=== PATIENT | male | born 1945 | race Caucasian/White ===

== ENCOUNTER 2016-10-25 09:13 | Observation (INO) | payer OTHER ==
[2016-10-25] MEDS ORDERED: LR 1,000 ML IV ONE (09:53)
[2016-10-25] MEDS ORDERED: LIDOCAINE 1% 2 ML INJ ID PRN (09:53)
[2016-10-25] MEDS ORDERED: ceFAZolin 2 GM/DEXTROSE 100 ML IV ONE (10:00)
--- NOTE | 2016-10-25 10:04 | PDHPUP ---
History & Physical Update H&P update statement: This history and physical update is based on an assessment of the patient which was completed after admission or registration (within 24 hours), but prior to the surgery/procedure. H&P update: H&P reviewed & patient examined, no change in patient's condition since H&P completed
[2016-10-25] MEDS ORDERED: CHLORHEXIDINE GLUC HIBICLENS 118 ML BTL TP ONE (10:13)
[2016-10-25] MEDS ORDERED: BUPIVACAINE 0.25% 30 ML SDV ONE ×2 (10:13→11:23)
[2016-10-25] MEDS ORDERED: THROMBIN (BOVINE) 5,000 UNIT VIAL TP ONE (10:13)
[2016-10-25] MEDS ORDERED: BACITRACIN 50,000 UNITS/10 ML SYR IRR ONE (10:13)
[2016-10-25] MEDS ORDERED: DEPO METHYLPREDNISOLONE 40 MG/ML SDV ONE (10:13)
[2016-10-25] MEDS ORDERED: MIDAZOLAM 2 MG/2 ML VIAL IVP ONE (10:57)
--- NOTE | 2016-10-25 11:03 | PDANEPAE ---
ANE History of Present Illness l12 lami ANE Past Medical History - Cardiovascular History Hx Hypertension: No Hx Arrhythmias: No Hx Chest Pain: No Hx Coronary Artery / Peripheral Vascular Disease: No Hx CHF / Valvular Disease: No Hx Palpitations: No Cardiovascular History Comment: echo and nuclear study. high cholesterol - Pulmonary History Hx COPD: No Hx Asthma/Reactive Airway Disease: No Hx Recent Upper Respiratory Infection: No Hx Oxygen in Use at Home: No Hx Sleep Apnea: Yes Sleep Apnea Screening Result - Last Documented: Positive - Neurologic History Hx Cerebrovascular Accident: No Hx Seizures: No Hx Dementia: No - Endocrine History Hx Diabetes: No - Renal History Hx Renal Disorders: Yes Renal History Comment: hx of prostate ca with prostatectomy - Liver History Hx Hepatic Disorders: No - Neurological & Psychiatric Hx Hx Neurological and Psychiatric Disorders: Yes Neurological / Psychiatric History Comment: slight depression - Cancer History Hx Cancer: Yes Cancer History Comment: prostate ca - Congenital Disorder History Hx Congenital Disorders: No - GI History Hx Gastrointestinal Disorders: No - Other Health History Other Health History: wears reading glasses. scalp condition- on minocin - Chronic Pain History Chronic Pain: Yes (back pain) - Surgical History Prior Surgeries: right shoulder replacement 2012. prostate surgery for ca 2000. exploratory surgery with lung bx. tonsillectomy ANE Review of Systems - Exercise capacity METS (RN): 3 METS ANE Patient History - Allergies Allergies/Adverse Reactions: No Known Allergies Allergy (Verified 09/30/16 12:51) - Home Medications Home Medications: Ambien 09/30/16 [Last Taken 1 Day Ago] Effexor 09/30/16 [Last Taken 1 Day Ago] MINOCIN 09/30/16 [Last Taken 1 Day Ago] Oxycodone HCl 09/30/16 [Last Taken 1 Day Ago] SIMVASTATIN 09/30/16 [Last Taken 2 Days Ago] - NPO status NPO Since - Liquids (Date): 10/25/16 NPO Since - Liquids (Time): 00:00 NPO Since - Solids (Date): 10/25/16 NPO Since - Solids (Time): 00:00 - Anes Hx Anes Hx: no prior problems - Smoking Hx Smoking Status: Never smoked - Family Anes Hx Family Hx Anesthesia Complications: none ANE Labs/Vital Signs - Vital Signs Blood Pressure: 117/86 Heart Rate: 98 Respiratory Rate: 18 O2 Sat (%): 91 Height: 182.88 cm Weight: 106.594 kg ANE Physical Exam - Airway Mallampati Score: Class 2 Mouth exam: normal dental/mouth exam - Pulmonary Pulmonary: no respiratory distress - Cardiovascular Cardiovascular: regular rate and rhythym - ASA Status ASA Status: II ANE Anesthesia Plan Anesthesia Plan: general endotracheal anesthesia
[2016-10-25] MEDS ORDERED: ROCURONIUM 50 MG/5 ML VIAL ONE (11:07)
[2016-10-25] MEDS ORDERED: DEXAMETHASONE 4 MG/ML VIAL ONE (11:08)
[2016-10-25] MEDS ORDERED: LIDOCAINE 2% 5 ML SDV ONE (11:08)
[2016-10-25] MEDS ORDERED: PROPOFOL/EMULSION 500 MG/50 ML BOTTLE IV ONE ×2 (11:09→12:08)
[2016-10-25] MEDS ORDERED: HYDROmorphONE/DILAUDID 2 MG/ML INJ ONE (11:09)
[2016-10-25] MEDS ORDERED: SUCCINYLCHOLINE CHLORIDE*ANESTHESIA ONLY*200 MG/10 ML SYR IVP ONE (11:09)
[2016-10-25] MEDS ORDERED: METOPROLOL TARTRATE 5 MG/5 ML INJ ONE (11:38)
[2016-10-25] MEDS ORDERED: ONDANSETRON 4 MG/2 ML VIAL IVP PRN (11:49)
[2016-10-25] MEDS ORDERED: LACTULOSE 20 GM/30 ML UDCUP PO PRN (11:49)
[2016-10-25] MEDS ORDERED: BISACODYL 10 MG SUPP PR PRN (11:49)
[2016-10-25] MEDS ORDERED: MAGNESIUM HYDROXIDE 30 ML UDCUP PO PRN (11:49)
[2016-10-25] MEDS ORDERED: POLYETHYLENE GLYCOL 3350 17 GM PKT PO PRN (11:49)
[2016-10-25] MEDS ORDERED: diphenhydrAMINE 25 MG CAP PO PRN (11:49)
[2016-10-25] MEDS ORDERED: ONDANSETRON DISINTEGRATING 4 MG TAB PO PRN (11:49)
[2016-10-25] MEDS ORDERED: NS 1,000 ML IV SCH (12:00)
[2016-10-25] MEDS ORDERED: SUGAMMADEX SODIUM 200 MG/2 ML VIAL IVP ONE (13:15)
[2016-10-25] MEDS ORDERED: KETOROLAC 30 MG/1 ML SDV ONE (13:19)
--- NOTE | 2016-10-25 13:34 | POSTOPPROG ---
Post Op Note Date of Operation: 10/25/16 Surgeon: Agnieszka Loya Director Of Physical Security: Agnieszka Loya [employer] Anesthesiologist: Dr Yap Anesthesia: GET(General Endotracheal) Pre-op Diagnosis: Lumbar stenosis Procedure: L1-2 laminectomy Inf/Abcess present in the surg proc area at time of surgery?: No Depth: Deep Incisional (Fascial) EBL: 50-100 Total fluids administered: see anesthesia Complications: none Date of Surgery: 10/25/16 Post Op Day: 0 Assessment/Plan: Assessment: 71 yr old s/p L1-2 laminectomy Plan: -Optimize pain management -PT/OT -Case management to eval dispo options per therapies recommendations -Please call neurosurgery with any questions/concerns Subjective: Patient waking up in PACU Objective: PERRLA EOMI 5/5 BUE 5/5 BLE Sensation intact to light touch BLE Dressing CDI Appropriate Neuro Check Frequency Ordered: Yes
[2016-10-25] MEDS ORDERED: MEPERIDINE 25 MG/ML SYR IVP PRN (13:36)
[2016-10-25] MEDS ORDERED: LR 500 ML IV PRN (13:36)
[2016-10-25] MEDS ORDERED: ALBUTEROL 3 ML DEYVIAL IH PRN (13:36)
[2016-10-25] MEDS ORDERED: NALOXONE HCL 0.4 MG/ML INJ IVP PRN (13:36)
--- NOTE | 2016-10-25 13:37 | POSTANESTH ---
Post Anesthetic Evaluation Cardiovascular Status: Normal, Stable Respiratory Status: Normal, Stable Level of Consciousness/Mental Status: Moderately Sleepy Pain Control: Adequate, Prn Tx Ordered Nausea/Vomiting Control: Adequate, Prn Tx Ordered Complications Possibly Related to Anesthesia: None Noted
[2016-10-25] MEDS ORDERED: fentaNYL 100 MCG/2 ML INJ ONE ×2 (13:47→14:01)
[2016-10-25] MEDS: fentaNYL 100 MCG/2 ML INJ IVP PRN ×3 (13:48→14:04)
[2016-10-25] MEDS ORDERED: HYDROmorphONE/DILAUDID 1 MG/ML SYR ONE (13:50)
[2016-10-25] MEDS: HYDROmorphONE/DILAUDID 1 MG/ML SYR IVP PRN ×3 (13:51→14:23)
[2016-10-25] MEDS: ACETAMINOPHEN 500 MG TAB PO SCH ×2 (14:50→20:21)
[2016-10-25] MEDS: METHOCARBAMOL 750 MG TAB PO PRN ×2 (14:54→20:27)
[2016-10-25] MEDS: oxyCODONE IR 5 MG TAB PO PRN ×2 (14:54→20:27)
--- NOTE | 2016-10-25 18:49 | GOP ---
[f rep st] OPERATIVE REPORT DATE OF OPERATION: 10/25/2016 SURGEON: Madhuri Tadeo MD NEUROSURGEON: Madhuri Tadeo MD [employer] INSPECTOR: Agnieszka Loya NP PREOPERATIVE DIAGNOSIS: Lumbar spondylosis, lumbar stenosis, epidural lipomatosis, neurogenic jv ication, bilateral lumbosacral radiculopathy. POSTOPERATIVE DIAGNOSIS: Lumbar spondylosis, lumbar stenosis, epidural lipomatosis, neurogenic ronald dication, bilateral lumbosacral radiculopathy. PROCEDURE PERFORMED: L1-2 laminectomy with bilateral decompression of central thecal sac and latera l recesses of the spinal canal ([id number]), microscopy, fluoroscopy. FINDINGS: ESTIMATED BLOOD LOSS: 25 cc. INDICATIONS: The patient is a 71-year-old with terrible discomfort radiating down both legs, who camacho d multilevel spinal stenosis with spondylosis throughout the lumbar spine, terrible disk degenerativ e disease at L1-2. He had no significant central stenosis at L5-S1 or L4-5 but he did have bilatera l recess stenosis at L4-5. At L2-3, L3-4 he had some moderate central spinal stenosis but there was moderately severe spinal stenosis at L1-2 and I felt this was the symptomatic level. Though there was no way to know for sure if this was indeed the level causing his problem, but it was the only ar ea where the thecal sac itself was compressed and all the nerves were clumped together, plus he had a large amount of epidural fat at the L1-2 level contributing to the problem, and I suggested decomp ression at that level alone. He understood that he may require more extensive surgery at multiple l evels but it was my desire to do a single approach and this was the most likely one to be causing hi s grief. He understood this uncertainty and he wanted to proceed. He knew there was risk of spinal fluid leak, nerve injury, continued symptoms, infection. He wanted to proceed despite the risks. DESCRIPTION OF PROCEDURE: Patient was taken to the operating room, placed in a supine position. Ge neral anesthesia was begun. He was flipped prone onto the Ray frame on top of a Jacob table. Care was taken to pad all points of contact. We used the O-arm for localizing in this case and it d id make it more challenging and more difficult. The other C-arms in the operating room were booked and the case could not proceed without radiographic guidance and we elected to use the O-arm in this fashion. He was sterilely prepped and draped in the usual fashion. Localizing x-rays were taken w ith needles at L5 and a needle at the L1-2 level. Midline incision was made. The subcutaneous tiss ue was dissected using Bovie cautery down to the fascia and a subperiosteal dissection was made down to the lamina of L1-2. Self-retaining retractors were placed. Two more localizing x-rays were christoph en, both AP and lateral images were taken, and we confirmed that we were at the L1-2 space before pr oceeding. We removed the inferior spinous process of L1, drilled bilateral laminas of L1, and then under the microscope, opened ligamentum flavum and decompressed the central thecal sac initially. T here was a large amount of epidural fat and we worked diligently to remove this. It was not suckabl e as it was adherent to the epidural veins and we removed it piecemeal. We worked our way circumfer entially around the L1-2 segment decompressing rostrally inferiorly all the way to the rostral lip o f the L2 lamina. We then undercut the facet joint complexes bilaterally. We did not perform a radi linden bilateral medial facetectomy, as we were very high in the spine and the facet angle at L1-2 was so steep. We did not safely want to remove the IAP of L1. We did however undercut the facet joint complexes and decompressed from the medial L2 pedicle border and up into the neural foramen at L1-2. We had a great decompression. We could visualize the lateral margin of the thecal sac. The nerves were now completely decompressed. We irrigated with antibiotic saline, shot a final x-ray confirmin g our location, and then closed the incision in multiple layers using Vicryl sutures. Steri-Strips were applied to the skin. The patient was reversed from anesthesia, extubated, and transferred to r ecovery room in stable condition. COMPLICATIONS: None. /[id number]/MODL
[2016-10-25] MEDS: ceFAZolin 2 GM/DEXTROSE 100 ML IV SCH (20:21)
[2016-10-25] MEDS: SENNOSIDES/DOCUSATE SODIUM TAB PO SCH (20:22)
[2016-10-25] MEDS: FAMOTIDINE 20 MG TAB PO SCH (20:22)
[2016-10-25] MEDS ORDERED: oxyCODONE IR 15 MG TAB PO PRN (20:38)
[2016-10-25] MEDS ORDERED: VENLAFAXINE HCL 150 MG PO SCH (21:15)
[2016-10-25] MEDS ORDERED: TRIAMTERENE/HCTZ 37.5/25 1 EACH TAB PO SCH (21:15)
[2016-10-25] MEDS ORDERED: Minocycline Hcl [Minocin] 100 MG PO SCH (21:15)
[2016-10-25] MEDS ORDERED: ZOLPIDEM TARTRATE 5 MG TAB PO PRN (22:13)
[2016-10-26] MEDS: ceFAZolin 2 GM/DEXTROSE 100 ML IV SCH (03:13)
[2016-10-26 05:00] LABS: ABSOLUTE IMMATURE GRANULOCYTES 0.09 10^3/uL (0.00-0.10); ADD DIFF? NO; ADD MORPH? NO; ADD SCAN? NO; ATYPICAL LYMPHOCYTE FLAG 0 (0-99); FRAGMENT RBC FLAG 0 (0-99); HEMOGLOBIN 14.3 g/dL (13.7-17.5); LEFT SHIFT FLG 10 (0-99); LIPEMIA HEMOLYSIS FLAG 90 (0-99); MEAN CELL HEMOGLOBIN 30.3 pg (27.9-34.1); MEAN CELL HEMOGLOBIN CONCENTR. 34.9 g/dL (32.4-36.7); MEAN CELL VOLUME 86.9 fL (81.5-99.8); MEAN PLATELET VOLUME 9.7 fL (8.7-11.7); PLATELET CLUMPS FLAG 0 (0-99); PLATELET COUNT 185 10^3/uL (150-400); RED BLOOD CELL COUNT 4.72 10^6/uL (4.40-6.38); RED CELL DISTRIBUTION WIDTH 13.2 % (11.5-15.2)
[2016-10-26 05:14] LABS: ANION GAP 12 mEq/L (8-16); CALCIUM 8.6 mg/dL (8.5-10.4); CARBON DIOXIDE 24 mEq/l (22-31); CHLORIDE 98 mEq/L (97-110); CREATININE 1.5 mg/dL (0.7-1.3); GLOMERULAR FILTRATION RATE 46; GLUCOSE 133 mg/dL (70-100); POTASSIUM 3.4 mEq/L (3.5-5.2); SODIUM 134 mEq/L (134-144)
[2016-10-26 05:26] VITALS: RESP 16
[2016-10-26] MEDS: ACETAMINOPHEN 500 MG TAB PO SCH (06:49)
--- NOTE | 2016-10-26 07:56 | NEUSURGPN ---
Date of Surgery: 10/25/16 Post Op Day: 1 Assessment/Plan: Assessment: 71 yr old s/p L1-2 laminectomy POD#1 Plan: -Expected incisional pain, pre op left leg pain improved -Patient doing well this am, pain controlled with PO meds -Plan for discharge home today -Please call neurosurgery with any questions/concerns Patient was seen by Dr Tadeo as well. Subjective: Left leg pain is gone Objective: PERRLA EOMI 5/5 BUE 5/5 BLE Sensation intact to light touch BLE Dressing CDI Neuro Check Frequency: per routine Urinary Catheter in Place: No - Physician Discussed Patient with Dr.: Carlyle Patient Seen by : Carlyle Neurosurgery Physical Exam - Vitals, I&O, Labs I and O 10/25/16 10/26/16 10/27/16 05:59 05:59 05:59 Intake Total 450 Balance 450 Weight 106.594 kg Intake: Oral (ml) 250 IV Intake (ml) 200 Other: Number of Voids Toilet 1 Vital Signs Temp Pulse Resp BP Pulse Ox 36.7 C 93 16 116/79 98 10/26/16 05:17 10/26/16 05:17 10/26/16 05:17 10/26/16 05:17 10/26/16 05:17 Laboratory Results 10/26/16 04:44 10/26/16 04:44 ICD10 Worksheet Patient Problems: Problems Problem Status Onset Lumbar stenosis Acute - ICD10 Problem Qualifiers (1) Lumbar stenosis
[2016-10-26 08:32] VITALS: BP 118/64; PULSE 98; TEMP 98.9; O2SAT 93
[2016-10-26] MEDS: FAMOTIDINE 20 MG TAB PO SCH (09:06)
[2016-10-26] MEDS: SENNOSIDES/DOCUSATE SODIUM TAB PO SCH (09:06)
--- NOTE | 2016-10-26 14:23 | ASDISCHSUM ---
Discharge Information Plan Status:Home with No Needs Medically Cleared to Leave: Discharge Date:10/26/2016 11:08 AM CM D/C Disposition:Home, Routine, Self-Care ADT D/C Disposition:Home, Routine, Self-Care Projected Discharge Date:10/26/2016 11:08 AM Transportation at D/C:Family Discharge Delay Reason: Follow-Up Date:10/26/2016 11:08 AM Discharge Slot: Final Diagnosis: Placement Information Patient Contact Information Contact Name:GARTH Relationship: Address:[address] [place] City:[facility] Phone: [facility]/Zip Code:[place] [address] Email: Financial Information Financial Class:Medicare Advantage Plans Primary Plan Desc:[employer] MEDICARE Primary Plan Number:[id number] Secondary Plan Desc: Secondary Plan Number: Assessment Information Intervention Information
--- NOTE | 2016-10-26 14:23 | ASMTCASEMG ---
Living Arrangements What is your living arrangement? Who do you live Answers: With Spouse with? Case Management Evaluation Functional: Able to return Home with Prior Level Answers: Yes of Function/Care Discharge Plan Comments Coordination Status Comments Notes: Pt s/p L1-2 laminectomy. Discharging home today w/no CM needs. Date Signed: 10/26/2016 12:14 PM Electronically Signed By:Ciara Timmons
[2016-10-26] MEDS ORDERED: Simvastatin [Zocor] 40 MG PO SCH (21:00)
[2016-10-28] MEDS ORDERED: ENOXAPARIN 40 MG/0.4 ML SYR SC SCH (09:00)
== END 2016-10-26 11:08 | disposition home or self-care (01) ==
LOC: F3N 09:13
PROVIDERS: ADMIT Neurological Surgery; ATTEND Neurological Surgery
PROC: 00NY0ZZ Release Lumbar Spinal Cord, Open Approach (ICD-10-PCS; principal; 2016-10-25 11:00)
PROC: 0SB00ZZ Excision of Lumbar Vertebral Joint, Open Approach (ICD-10-PCS; principal; 2016-10-25 11:00)
CPT/HCPCS: 63047; 76001; 97161; 97165; G0378; G8987; G8989; J0171; J0330; J0690; J1030; J1100; J1170; J1885; J2250; J2405; J2704; J3010